=== PATIENT | male | born 1990 | race African-American/Black ===

== ENCOUNTER 2018-03-27 10:54 | Emergency (ER) | payer OTHER ==
[2018-03-27 11:10] VITALS: BP 146/78; PULSE 93; TEMP 97; BMI 49.5
[2018-03-27] MEDS ORDERED: DIPHTH,PERTUSS(ACELL),TET 0.5 ML DISP.SYRIN IM ONE (11:20)
--- NOTE | 2018-03-27 11:25 | PDOC ---
History of Present Illness - General Chief Complaint: Injury Stated Complaint: INJURY Time Seen by Provider: 03/27/18 11:15 History Source: Patient Exam Limitations: No Limitations - History of Present Illness Initial Comments: CHIEF COMPLAINT: 27 y/o afebrile male here for tetanus shot after stepping on 2 nails while doing yard work. HISTORY OF PRESENT ILLNESS: The patient is not a diabetic. He denies all other complaints. Vital signs on arrival are within normal limits. REVIEW OF SYSTEMS: GENERAL/CONSTITUTIONAL: No fever/chills. No weakness. No weight change. MUSCULOSKELETAL: No joint or muscle swelling or pain. No neck or back pain. SKIN: +nail puncture wounds to bottom of feet NEUROLOGIC: No headache, vertigo, loss of consciousness, or loss of sensation. PHYSICAL EXAM: VITAL_SIGNS: within normal limits GENERAL_APPEARANCE: alert, cooperative, no obvious discomfort. Patient is ambulatory with normal gait. MENTAL_STATUS: speech clear, oriented X 3, responds appropriately to questions. NEURO: motor intact and sensory intact in injured extremity. EXTREMITIES: Normal range of motion b/l LEs. SKIN: 2 small, closed puncture wounds to bottom of each foot. Does not appear skin was broken. No erythema or edema. Past History - Past Medical History Allergies/Adverse Reactions: Allergies Allergy/AdvReac Type Severity Reaction Status Date / Time No Known Allergies Allergy Verified 03/27/18 10:59 Home Medications: Ambulatory Orders NK [No Known Home Medication] 03/27/18 COPD: No - Immunization History Immunization Up to Date: No - Suicide/Smoking/Psychosocial Hx Smoking History: Never smoked *Physical Exam - Vital Signs Last Vital Signs Temp Pulse Resp BP Pulse Ox 97 F L 93 H 18 146/78 99 03/27/18 10:55 03/27/18 10:55 03/27/18 10:55 03/27/18 10:55 03/27/18 10:55 Medical Decision Making - Medical Decision Making A/P: 27 y/o male with nail puncture wounds to bottom of feet. Will give tetanus shot. Patient informed he is now UTD for 10 years. WIll discharge to home with supportive care instructions. The patient verbalizes understanding of all instructions, has no further questions and is awaiting discharge. *DC/Admit/Observation/Transfer Diagnosis at time of Disposition: Puncture wound of skin from metal nail - Discharge Dispostion Disposition: HOME Condition at time of disposition: Good - Referrals Referrals: Issac Stevens MD [Primary Care Provider] - - Patient Instructions Printed Discharge Instructions: DI for Puncture Wound Additional Instructions: Discharge Instructions: -You received a tetanus shot today; you are now up to date for 10 years -Keep wounds clean and dry -Return to the ER with any worsening or concerning symptoms. - Post Discharge Activity
== END 2018-03-27 11:35 | disposition home or self-care (01) ==
LOC: JER 10:54 → JERFT 10:54
PROC: 3E0234Z Introduction of Serum, Toxoid and Vaccine into Muscle, Percutaneous Approach (ICD-10-PCS; principal; 2018-03-27)
DX: S91.331A Puncture wound without foreign body, right foot, initial encounter (principal); S91.332A Puncture wound without foreign body, left foot, initial encounter; W22.8XXA Striking against or struck by other objects, initial encounter; Y93.H2 Activity, gardening and landscaping; Y92.89 Other specified places as the place of occurrence of the external cause
CPT/HCPCS: 90715; 99281-25

== ENCOUNTER 2023-02-07 05:03 | Emergency (ER) | payer OTHER ==
[2023-02-07 05:17] VITALS: BP 143/100; PULSE 77; RESP 18; TEMP 97.8; BMI 51.5
[2023-02-07] MEDS ORDERED: ACETAMINOPHEN 500 MG TABLET (FP) PO ONE (05:22)
[2023-02-07] MEDS ORDERED: ACETAMINOPHEN 325 MG TABLET (FP) ONE (05:26)
== END 2023-02-07 06:50 | disposition home or self-care (01) ==
LOC: JER 05:03
DX: M54.50 Low back pain, unspecified (principal); R51.9 Headache, unspecified; L98.9 Disorder of the skin and subcutaneous tissue, unspecified; V87.7XXA Person injured in collision between other specified motor vehicles (traffic), initial encounter
CPT/HCPCS: 99283-25

== ENCOUNTER 2023-07-04 17:52 | Emergency (ER) | payer OTHER ==
[2023-07-04 18:05] VITALS: BP 136/60; PULSE 59; RESP 20; TEMP 98.3; BMI 46.3
== END 2023-07-04 18:55 | disposition home or self-care (01) ==
LOC: JERFT 17:52
DX: S83.242D Other tear of medial meniscus, current injury, left knee, subsequent encounter (principal); Z48.01 Encounter for change or removal of surgical wound dressing
CPT/HCPCS: 99282-25